=== PATIENT | male | born 1960 | race Caucasian/White ===

== ENCOUNTER 2021-03-16 22:42 | Emergency (ER) | payer MEDICAID ==
[2021-03-16 22:53] VITALS: BP 149/95; PULSE 71; RESP 18; TEMP 98
--- NOTE | 2021-03-16 23:30 | XR ---
EXAMINATION TYPE: XR hand complete RT DATE OF EXAM: 03/16/2021 COMPARISON: NONE HISTORY: Pain TECHNIQUE: 3 views FINDINGS: I see no fracture nor dislocation. There is no sign of a radiopaque foreign body. Joint [facility]efer[facility] are fairly normal. There are no erosions. IMPRESSION: No acute abnormality of the right hand.
[2021-03-17] MEDS ORDERED: DEXAMETHASONE SOD PHOSPHATE 10 MG/ML 1 ML VIAL IM STA (00:15)
[2021-03-17] MEDS ORDERED: SULFAMETHOX-TMP 800-160MG 1 EACH TAB PO STA (00:16)
[2021-03-17] MEDS ORDERED: CIPROFLOXACIN HCL 500 MG TAB PO STA (00:16)
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
== END 2021-03-17 00:45 | disposition home or self-care (01) ==
LOC: EC 22:42
DX: L03.113 Cellulitis of right upper limb (principal)
CPT/HCPCS: 73130; 99283; 96372; J1100